=== PATIENT | female | born 1985 | race American Indian/Alaskan Native ===

== ENCOUNTER 2016-06-09 17:19 | Emergency (ER) | payer SELFPAY ==
[2016-06-09 17:29] VITALS: BP 132/100
--- NOTE | 2016-06-09 17:55 | Emergency Department Report ---
Chief Complaint: Nausea/Vomiting/Diarrhea Stated Complaint: FLU SYMPTOMS Time Seen by Provider: 06/09/16 17:52 - HPI History of Present Illness: PT c/o body aches and n/v. PT states her symptoms started over the weekend but became worse yesterday. 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 - ROS Review of Systems: + coughing +n/v + st - Exam Vital Signs: Vital Signs 06/09/16 17:26 Temperature 97.7 F Pulse Rate 89 Respiratory 20 Rate Blood Pressure 132/100 O2 Sat by Pulse 100 Oximetry Physical Exam: PT looks well, non toxic lungs diminished cierra pt with RUQ abd tenderness abd is soft MSE screening note: Focused history and physical exam performed. Due to findings the following was ordered: xr, labs ED Disposition for MSE Condition: Stable
[2016-06-09 18:29] LABS: Basophils % (Auto) 0.5 % (0.0-1.8); Eosinophils % (Auto) 4.4 % (0.0-4.3); Hematocrit 37.6 % (30.3-42.9); Hemoglobin 11.8 gm/dl (10.1-14.3); Mean Corpuscular HGB Conc 32 % (30-34); Mean Corpuscular Volume 71 fl (79-97); Platelet Count 332 K/mm3 (140-440); Red Cell Distribution Width 16.2 % (13.2-15.2); White Blood Count 7.1 K/mm3 (4.5-11.0)
[2016-06-09 18:36] LABS: Mean Corpuscular Hemoglobin 22 pg (28-32)
[2016-06-09 18:49] LABS: Alanine Aminotransferase 14 units/L (7-56); Albumin 4.2 g/dL (3.9-5); Albumin/Globulin Ratio 1.3 %; Alkaline Phosphatase 41 units/L (35-129); Anion Gap 20 mmol/L; Bilirubin,Total 0.3 mg/dL (0.1-1.2); Blood Urea Nitrogen 9 mg/dL (7-17); Calcium 9.3 mg/dL (8.4-10.2); Carbon Dioxide 22 mmol/L (22-30); Chloride 101.5 mmol/L (98-107); Glucose 84 mg/dL (65-100); Lipase 19 units/L (13-60); Potassium 4.1 mmol/L (3.6-5.0); Sodium 139 mmol/L (137-145); Total Protein 7.5 g/dL (6.3-8.2)
[2016-06-09 21:34] LABS: Bacteria,Urine 1+ /HPF (Negative); Bilirubin,Urine NEG (Negative); Blood,Urine LG (Negative); Ketones,Urine NEG (Negative); Leukocyte Esterase,Urine SM (Negative); Mucus,Urine FEW /HPF; Nitrite,Urine NEG (Negative); Protein,Urine <15 mg/dL mg/dL (Negative); Urobilinogen,Urine < 2.0 mg/dL (<2.0)
--- NOTE | 2016-06-09 22:26 | Emergency Department Report ---
ED General Adult HPI - General Chief complaint: Nausea/Vomiting/Diarrhea Stated complaint: FLU SYMPTOMS Time Seen by Provider: 06/09/16 17:52 Source: patient, RN notes reviewed Mode of arrival: Ambulatory Limitations: No Limitations - History of Present Illness Initial comments: This is a 30-year-old female. She is previously unknown to me. Her primary care doctor is Dr. Morales The patient presents to the ER complaining of chest pain, back pain, diarrhea, nausea and vomiting. Symptoms have been present since Tuesday. The chest pain as central, and located in the bilateral anterior chest wall. It increases with coughing, palpation, range of motion. There is no diaphoresis. No recent trips greater than 4 hours. No recent hospitalizations. No family history of heart disease. Does not use cocaine. Nausea and vomiting is intermittent. Patient reports vomiting 4 times today. It is yellow. It is nonbloody. It is nonbilious. There is no lower abdominal pain. No irritative or obstructive urinary symptoms. Patient also complains of body aches. -: Gradual, days(s) Location: chest, back, left, right, upper extremity, lower extremity Quality: aching Consistency: intermittent Improves with: rest Worsens with: movement Associated Symptoms: chest pain, cough, loss of appetite, malaise, nausea/ vomiting - Related Data Previous Rx's Medication Instructions Recorded Last Taken Type Diclofenac [Jacqueline Mistry] 75 mg PO Q12H #30 tablet 04/24/14 Unknown Rx HYDROcodone/ACETAMINOPHEN [[place] 1 each PO Q6H #16 tablet 04/24/14 Unknown Rx 7.5-325 mg TAB] predniSONE [Deltasone] 20 mg PO BID #10 tab 04/24/14 Unknown Rx Amoxicillin/K Clav Tab [Augmentin 1 tab PO BID #20 tab 11/26/15 Unknown Rx 875 mg] Ibuprofen [Motrin 800 MG tab] 800 mg PO Q8HR PRN #20 tablet 11/26/15 Unknown Rx Albuterol Sulfate [Proair 90 mcg IH Q4HR PRN #2 aer.pow.ba 06/09/16 Unknown Rx Respiclick] Benzonatate [Tessalon Perles] 100 mg PO Q8HR PRN #30 capsule 06/09/16 Unknown Rx Ibuprofen [Motrin] 600 mg PO Q8H PRN #30 tablet 06/09/16 Unknown Rx Ondansetron [Zofran Odt] 4 mg PO QID PRN #20 tab.rapdis 06/09/16 Unknown Rx Allergies Allergy/AdvReac Type Severity Reaction Status Date / Time No Known Allergies Allergy Verified 04/24/14 10:14 ED Review of Systems ROS: Stated complaint: FLU SYMPTOMS Other details as noted in HPI ED Past Medical Hx - Past Medical History Previous Medical History?: Yes Hx Headaches / Migraines: Yes Additional medical history: Bronchitis - Surgical History Past Surgical History?: Yes Additional Surgical History: right wrist - Social History Smoking Status: Current Every Day Smoker Substance Use Type: Other - Medications Home Medications: Home Medications Medication Instructions Recorded Confirmed Last Taken Type Diclofenac Dr [Voltaren Dr] 75 mg PO Q12H #30 tablet 04/24/14 Unknown Rx HYDROcodone/ACETAMINOPHEN [[place] 1 each PO Q6H #16 tablet 04/24/14 Unknown Rx 7.5-325 mg TAB] predniSONE [Deltasone] 20 mg PO BID #10 tab 04/24/14 Unknown Rx Amoxicillin/K Clav Tab [Augmentin 1 tab PO BID #20 tab 11/26/15 Unknown Rx 875 mg] Ibuprofen [Motrin 800 MG tab] 800 mg PO Q8HR PRN #20 tablet 11/26/15 Unknown Rx Albuterol Sulfate [Proair 90 mcg IH Q4HR PRN #2 aer.pow.ba 06/09/16 Unknown Rx Respiclick] Benzonatate [Tessalon Perles] 100 mg PO Q8HR PRN #30 capsule 06/09/16 Unknown Rx Ibuprofen [Motrin] 600 mg PO Q8H PRN #30 tablet 06/09/16 Unknown Rx Ondansetron [Zofran Odt] 4 mg PO QID PRN #20 tab.rapdis 06/09/16 Unknown Rx ED Physical Exam - General Limitations: No Limitations General appearance: alert, in no apparent distress - Head Head exam: Present: atraumatic, normocephalic - Eye Eye exam: Present: normal appearance, PERRL, EOMI. Absent: nystagmus - ENT ENT exam: Present: normal exam, normal orophraynx, mucous membranes moist, TM's normal bilaterally, normal external ear exam - Neck Neck exam: Present: normal inspection, full ROM, lymphadenopathy. Absent: tenderness, meningismus - Respiratory Respiratory exam: Present: normal lung sounds bilaterally, chest wall tenderness. Absent: respiratory distress, wheezes, rales, rhonchi, stridor, decreased breath sounds - Cardiovascular Cardiovascular Exam: Present: regular rate, normal rhythm, normal heart sounds. Absent: bradycardia, tachycardia, irregular rhythm, systolic murmur, diastolic murmur, rubs, gallop - GI/Abdominal GI/Abdominal exam: Present: soft, normal bowel sounds. Absent: distended, tenderness, guarding, rebound, rigid, pulsatile mass - Extremities Exam Extremities exam: Present: normal inspection, full ROM, normal capillary refill , calf tenderness (there is right lower extremity tenderness. This is isolated. There is no palpable cord. There is negative Homans sign. Compartments are soft.). Absent: tenderness, pedal edema, joint swelling - Back Exam Back exam: Present: normal inspection, full ROM. Absent: tenderness, CVA tenderness (R), CVA tenderness (L), muscle spasm, paraspinal tenderness, vertebral tenderness - Neurological Exam Neurological exam: Present: alert, oriented X3, normal gait, other (Extraocular movements intact. Tongue midline. No facial droop. Facial sensation intact to light touch in the V1, V2, V3 distribution bilaterally. 5 and 5 strength in 4 extremities.. Sensation is intact to light touch in 4 extremities.). Absent : motor sensory deficit - Psychiatric Psychiatric exam: Present: normal affect, normal mood - Skin Skin exam: Present: warm, dry, intact, normal color. Absent: rash ED Course Vital Signs 06/09/16 06/09/16 06/09/16 17:26 22:48 22:51 Temperature 97.7 F Pulse Rate 89 93 H 91 H Respiratory 20 14 14 Rate Blood Pressure 132/100 O2 Sat by Pulse 100 98 98 Oximetry - Reevaluation(s) Reevaluation #1: 06/09/16 22:57 Differential diagnosis: Bronchitis, viral syndrome, pneumonia, acute coronary syndrome, influenza-like illness, urinary tract infection Assessment and plan: 30-year-old female with multiple nonspecific constitutional complaints. Influenza illness like symptoms have been present for greater than 72 hours, therefore, she is out of Tamiflu candidate, and there is no utility in testing her for influenza. Chest pain is atypical, present for 3-4 days, exquisitely reproducible. She is low risk by ANNELIESE score, low risk by heart score, has no pulmonary embolus or DVT risk factors, is low risk by well's criteria, and is perc negative. She has right calf tenderness which is isolated. Given this, a d-dimer will be sent to risk stratify the patient for pulmonary embolus. X-ray of the chest is negative. EKG, laboratory studies pending. As per the [employer] clinical policy, myocardial infarction may be excluded with 1 set of cardiac enzymes if symptoms have been present for greater than 8 hours. 06/09/16 22:57 06/09/16 23:20 Reevaluation #2: 06/09/16 23:29 Troponin negative. D-dimer negative. EKG with nonspecific abnormalities. Patient can follow up with outpatient primary care or cardiology. She is at low risk for major adverse cardiac event, it appears to be reliable. Furthermore, the cardiology groups here at this facility can typically accommodate a patient for close outpatient follow-up. ED Medical Decision Making - Lab Data Result diagrams: 06/09/16 17:59 06/09/16 Unknown Vital Signs 06/09/16 17:26 Temperature 97.7 F Pulse Rate 89 Respiratory 20 Rate Blood Pressure 132/100 O2 Sat by Pulse 100 Oximetry Lab Results 06/09/16 06/09/16 06/09/16 Range/Units 17:59 21:05 Unknown WBC 7.1 (4.5-11.0) K/mm3 RBC 5.30 H (3.65-5.03) M/mm3 Hgb 11.8 (10.1-14.3) gm/dl Hct 37.6 (30.3-42.9) % MCV 71 L (79-97) fl MCH 22 L (28-32) pg MCHC 32 (30-34) % RDW 16.2 H (13.2-15.2) % Plt Count 332 (140-440) K/mm3 Lymph % (Auto) 37.8 H (13.4-35.0) % [place] % (Auto) 6.9 (0.0-7.3) % Eos % (Auto) 4.4 H (0.0-4.3) % Baso % (Auto) 0.5 (0.0-1.8) % Lymph # 2.7 (1.2-5.4) K/mm3 [place] # 0.5 (0.0-0.8) K/mm3 Eos # 0.3 (0.0-0.4) K/mm3 Baso # 0.0 (0.0-0.1) K/mm3 Seg Neutrophils % 50.4 (40.0-70.0) % Seg Neutrophils # 3.6 (1.8-7.7) K/mm3 Sodium 139 (137-145) mmol/L Potassium 4.1 (3.6-5.0) mmol/L Chloride 101.5 (98-107) mmol/L Carbon Dioxide 22 (22-30) mmol/L Anion Gap 20 mmol/L BUN 9 (7-17) mg/dL Creatinine 0.6 L (0.7-1.2) mg/dL Estimated GFR > 60 ml/min BUN/Creatinine Ratio 15.00 % Glucose 84 (65-100) mg/dL Calcium 9.3 (8.4-10.2) mg/dL Total Bilirubin 0.3 (0.1-1.2) mg/dL AST 19 (5-40) units/L ALT 14 (7-56) units/L Alkaline Phosphatase 41 (35-129) units/L Total Protein 7.5 (6.3-8.2) g/dL Albumin 4.2 (3.9-5) g/dL Albumin/Globulin Ratio 1.3 % Lipase 19 (13-60) units/L Urine Color Yellow (Yellow) Urine Turbidity Clear (Clear) Urine pH 5.0 (5.0-7.0) Ur Specific [place] 1.018 (1.003-1.030) Urine Protein <15 mg/dl (Negative) mg/dL Urine Glucose (UA) Neg (Negative) mg/dL Urine Ketones Neg (Negative) mg/dL Urine Blood Lg (Negative) Urine Nitrite Neg (Negative) Ur Reducing Substances Not Reportable Urine Bilirubin Neg (Negative) Urine Ictotest Not Reportable Urine Urobilinogen < 2.0 (<2.0) mg/dL Ur Leukocyte Esterase Sm (Negative) Urine WBC (Auto) 6.0 (0.0-6.0) /HPF Urine RBC (Auto) 3.0 (0.0-6.0) /HPF U Epithel Cells (Auto) 3.0 (0-13.0) /HPF Urine Bacteria (Auto) 1+ (Negative) /HPF Hyaline Casts 1 /LPF Urine Mucus Few /HPF Urine HCG, Qual Negative (Negative) - EKG Data -: EKG Interpreted by Me EKG shows normal: sinus rhythm, axis, intervals, QRS complexes Rate: normal - EKG Data When compared to previous EKG there are: previous EKG unavailable 06/09/16 23:19 Normal sinus, 87 bpm, normal axis, normal intervals, T-wave inversion in lead 3 , not morphologically consistent with STEMI, there is no prior for comparison. - Radiology Data Radiology results: image reviewed interpreted by me: X-ray of the chest is negative for acute disease Critical care attestation.: If time is entered above; I have spent that time in minutes in the direct care of this critically ill patient, excluding procedure time. ED Disposition Clinical Impression: Chest wall pain Disposition: DISCHARGED TO HOME OR SELFCARE Is pt being admited?: No Does the pt Need Aspirin: No Condition: Stable Instructions: Chest Pain (ED) Additional Instructions: Take pain medication, nausea medication, coughing medication as needed/ directed. Follow up with a primary care doctor or medicaid specialist within the next week. Dr. Sheikh is a local primary care doctor. Doctors Capri/ Maurice are local medicaid specialist. Return to the ER right away with her pain, worsened pain, migration of pain, fevers or chills, intractable nausea or vomiting, inability to tolerate liquid feeds. Referrals: PRIMARY CARE, [Primary Care Provider] - 3-5 Days ANGELA SHEIKH MD, PHD [Staff Physician] - 3-5 Days ALONZO PINEDA MD [Staff Physician] - 3-5 Days PERLA BAKER MD [Staff Physician] - 3-5 Days
[2016-06-09] MEDS: TYLENOL PO ONE (23:00)
[2016-06-09] MEDS: TORADOL IV ONE (23:00)
[2016-06-09] MEDS: NACL 0.9% 1000 ML 1,000 ML IV ONE (23:00)
[2016-06-09] MEDS: ZOFRAN IV ONE (23:01)
[2016-06-09 23:17] LABS: INR 0.96 (0.87-1.13)
[2016-06-09 23:25] LABS: Creatine Kinase 233 units/L (30-135)
--- NOTE | 2016-06-10 07:42 | XRay Report ---
Chest 2 views: History: Cough. Findings: Normal cardiomediastinal silhouette. Trachea is midline. No consolidation, pneumothorax or pleural effusion. Impression: No acute cardiopulmonary findings.
== END 2016-06-09 23:50 | disposition home or self-care (01) ==
LOC: ED 17:19
DX: R07.89 Other chest pain (principal); G43.909 Migraine, unspecified, not intractable, without status migrainosus; F17.200 Nicotine dependence, unspecified, uncomplicated
CPT/HCPCS: 36415; 71020; 80053; 81001; 81025; 82550; 83690; 84484; 85025; 85379; 85610; 93005; 93010; 96361; 96374; 99284; J1885; J7030; J2405

== ENCOUNTER 2016-11-04 14:54 | Emergency (ER) | payer SELFPAY ==
[2016-11-04 21:40] LABS: Basophils % (Auto) 0.9 % (0.0-1.8); Eosinophils % (Auto) 1.3 % (0.0-4.3); Hematocrit 38.8 % (30.3-42.9); Hemoglobin 12.5 gm/dl (10.1-14.3); Mean Corpuscular HGB Conc 32 % (30-34); Mean Corpuscular Volume 70 fl (79-97); Platelet Count 359 K/mm3 (140-440); Red Blood Count 5.52 M/mm3 (3.65-5.03); Red Cell Distribution Width 16.3 % (13.2-15.2); White Blood Count 9.8 K/mm3 (4.5-11.0)
[2016-11-04 21:43] LABS: Mean Corpuscular Hemoglobin 23 pg (28-32)
[2016-11-04] MEDS ORDERED: NACL 0.9% 1000 ML 1,000 ML IV ONE (21:46)
[2016-11-04] MEDS ORDERED: TORADOL IV ONE (21:46)
[2016-11-04] MEDS ORDERED: DECADRON IV ONE (21:46)
--- NOTE | 2016-11-04 21:51 | Emergency Department Report ---
ED Headache HPI - General Chief Complaint: Headache Stated Complaint: HEADACHE/SYNCOPE Time Seen by Provider: 11/04/16 21:36 Source: patient Exam Limitations: no limitations - History of Present Illness Initial Comments: 31-year-old female complaining of headache for the last 2 weeks. Patient states the headache is worsened point where she now has pressure in the back of her head and her neck. Denies fevers chills nausea vomiting. States she did get lightheaded and dizzy. Saw some floaters in her eyes bilaterally. These are currently resolved. [place] like she was given a pass out earlier today. She is not taking any medications today. Timing/Duration: 1 week Quality: moderate Head Injury Location: occipital Recent Head Trauma: chronic headaches Associated Symptoms: denies symptoms, vision changes. denies: confusion, fatigue, facial pain, fever/chills, flushing, loss of consciousness, nausea/ vomiting, nasal congestion, nasal drainage, numbness in legs/feet, rash, seizures, sinus infection, stiff neck, weakness Allergies/Adverse Reactions: Allergies ondansetron HCl [From Zofran (as hydrochloride)] Adverse Reaction (Intermediate , Verified 11/04/16 15:07) Itching Home Medications: Ambulatory Orders Diclofenac Dr [Voltaren Dr] 75 mg PO Q12H #30 tablet 04/24/14 HYDROcodone/ACETAMINOPHEN [[place] 7.5-325 mg TAB] 1 each PO Q6H #16 tablet Amoxicillin/K Clav Tab [Augmentin 875 mg] 1 tab PO BID #20 tab 11/26/15 Ibuprofen [Motrin 800 MG tab] 800 mg PO Q8HR PRN #20 tablet 11/26/15 Albuterol Sulfate [Proair Respiclick] 90 mcg IH Q4HR PRN #2 aer.pow.ba 06/09/16 Benzonatate [Tessalon Perles] 100 mg PO Q8HR PRN #30 capsule 06/09/16 Metoclopramide [Reglan] 10 mg PO QID PRN #30 tablet 06/09/16 Ibuprofen [Motrin 600 MG tab] 600 mg PO Q8H PRN #30 tablet 11/05/16 predniSONE [Deltasone] 40 mg PO DAILY #10 tab 11/05/16 ED Review of Systems ROS: Stated complaint: HEADACHE/SYNCOPE Other details as noted in HPI Comment: All other systems reviewed and negative Constitutional: denies: chills, fever Eyes: vision change (floaters now resolved). denies: eye pain, eye discharge ENT: denies: ear pain, throat pain Respiratory: denies: cough, shortness of breath, wheezing Cardiovascular: denies: chest pain, palpitations Endocrine: no symptoms reported Gastrointestinal: denies: abdominal pain, nausea, diarrhea Genitourinary: denies: urgency, dysuria, discharge Musculoskeletal: denies: back pain, joint swelling, arthralgia Skin: denies: rash, lesions Neurological: headache. denies: weakness, paresthesias Psychiatric: denies: anxiety, depression Hematological/Lymphatic: denies: easy bleeding, easy bruising ED Past Medical Hx - Past Medical History Hx Headaches / Migraines: Yes Additional medical history: Bronchitis. OBESITY - Surgical History Additional Surgical History: right wrist-CYST REMOVED - Family History Family history: no significant - Social History Smoking Status: Current Some Day Smoker Substance Use Type: None - Medications Home Medications: Home Medications Medication Instructions Recorded Confirmed Last Taken Type Diclofenac Dr [Jacqueline Mistry] 75 mg PO Q12H #30 tablet 04/24/14 Unknown Rx HYDROcodone/ACETAMINOPHEN [[place] 1 each PO Q6H #16 tablet 04/24/14 Unknown Rx 7.5-325 mg TAB] Amoxicillin/K Clav Tab [Augmentin 1 tab PO BID #20 tab 11/26/15 Unknown Rx 875 mg] Ibuprofen [Motrin 800 MG tab] 800 mg PO Q8HR PRN #20 tablet 11/26/15 Unknown Rx Albuterol Sulfate [Proair 90 mcg IH Q4HR PRN #2 aer.pow.ba 06/09/16 Unknown Rx Respiclick] Benzonatate [Tessalon Perles] 100 mg PO Q8HR PRN #30 capsule 06/09/16 Unknown Rx Metoclopramide [Reglan] 10 mg PO QID PRN #30 tablet 06/09/16 Unknown Rx Ibuprofen [Motrin 600 MG tab] 600 mg PO Q8H PRN #30 tablet 11/05/16 Unknown Rx predniSONE [Deltasone] 40 mg PO DAILY #10 tab 11/05/16 Unknown Rx ED Physical Exam - General Limitations: No Limitations General appearance: alert, in no apparent distress - Head Head exam: Present: atraumatic, normocephalic - Eye Eye exam: Present: normal appearance, PERRL, EOMI. Absent: scleral icterus, conjunctival injection, nystagmus Pupils: Present: normal accommodation - ENT ENT exam: Present: mucous membranes moist - Neck Neck exam: Present: normal inspection - Respiratory Respiratory exam: Present: normal lung sounds bilaterally. Absent: respiratory distress - Cardiovascular Cardiovascular Exam: Present: regular rate, normal rhythm. Absent: systolic murmur, diastolic murmur, rubs, gallop - GI/Abdominal GI/Abdominal exam: Present: soft, normal bowel sounds - Extremities Exam Extremities exam: Present: normal inspection - Back Exam Back exam: Present: normal inspection - Neurological Exam Neurological exam: Present: alert, oriented X3, CN II-XII intact - Expanded Neurological Exam Expanded Patient oriented to: Present: person, place, time Speech: Present: fluid speech Cerebellar function: Finger to Nose: Normal, Heel to Chaudhry: Normal Upper motor neuron: Rayray Neglect: Normal, Pronator Drift: Normal, Babinski Sign : Normal, Sensory Extinction: Normal - Psychiatric Psychiatric exam: Present: normal affect, normal mood - Skin Skin exam: Present: warm, dry, intact, normal color. Absent: rash ED Course Vital Signs 11/04/16 11/04/16 11/04/16 15:00 21:04 21:10 Temperature 98.5 F Pulse Rate 99 H 82 78 Respiratory 16 14 14 Rate Blood Pressure 143/97 131/84 Blood Pressure [Right] O2 Sat by Pulse 99 100 100 Oximetry 11/04/16 11/04/16 11/04/16 21:20 21:30 21:40 Temperature Pulse Rate 80 84 76 Respiratory 11 L 14 14 Rate Blood Pressure 133/90 131/80 131/80 Blood Pressure [Right] O2 Sat by Pulse 99 98 99 Oximetry 11/04/16 11/04/16 11/04/16 21:50 22:00 22:10 Temperature Pulse Rate 76 74 86 Respiratory 15 15 15 Rate Blood Pressure 123/79 126/77 126/77 Blood Pressure [Right] O2 Sat by Pulse 99 100 99 Oximetry 11/04/16 11/04/16 11/04/16 22:20 22:30 22:34 Temperature 98.4 F Pulse Rate 84 83 81 Respiratory 13 14 18 Rate Blood Pressure 121/80 121/80 Blood Pressure 120/70 [Right] O2 Sat by Pulse 98 98 99 Oximetry ED Medical Decision Making - Lab Data Result diagrams: 11/04/16 21:20 11/04/16 21:20 Laboratory Results - last 24 hr 11/04/16 21:20 WBC 9.8 RBC 5.52 H Hgb 12.5 Hct 38.8 MCV 70 L MCH 23 L MCHC 32 RDW 16.3 H Plt Count 359 Lymph % (Auto) 37.5 H [place] % (Auto) 5.2 Eos % (Auto) 1.3 Baso % (Auto) 0.9 Lymph # 3.7 [place] # 0.5 Eos # 0.1 Baso # 0.1 Seg Neutrophils % 55.1 Seg Neutrophils # 5.4 Laboratory Results - last 24 hr 11/04/16 11/04/16 21:20 21:20 WBC 9.8 RBC 5.52 H Hgb 12.5 Hct 38.8 MCV 70 L MCH 23 L MCHC 32 RDW 16.3 H Plt Count 359 Lymph % (Auto) 37.5 H [place] % (Auto) 5.2 Eos % (Auto) 1.3 Baso % (Auto) 0.9 Lymph # 3.7 [place] # 0.5 Eos # 0.1 Baso # 0.1 Seg Neutrophils % 55.1 Seg Neutrophils # 5.4 Carbon Dioxide 25 BUN 8 Creatinine 0.6 L Estimated GFR > 60 BUN/Creatinine Ratio 13.33 Glucose 87 Calcium 9.9 Total Creatine Kinase 248 H Troponin T < 0.010 - EKG Data -: EKG Interpreted by Me - EKG Data 11/04/16 21:50 Sinus 73 normal axis normal intervals and T-wave inversion in III and aVF no ST segment changes. - Medical Decision Making 31-year-old female here with complaint of headache worsening over the last few days. Has a history of chronic headaches although this one is significantly worse than priors. Visual acuity is at baseline. She has a normal neurological exam. Plan head CT check labs and will treat with IV fluids and IV Toradol and IV steroids. Plan to reassess. 11:45 PM patient feeling better after IV fluids Toradol and steroids. Headache is resolved. Head CT negative. Labs unremarkable. Had a long discussion with the patient regarding her prior visual symptoms. If these were large return the patient is to return to the emergency department for possible lumbar puncture. I do not suspect that she has idiopathic intracranial hypertension however I do feel that if her visual symptoms or to return she should have a lumbar puncture. My suspicion is this is most likely migraine headache. Portions of this chart were dictated with dictation software. There may be dictation errors contained within this note. Critical care attestation.: If time is entered above; I have spent that time in minutes in the direct care of this critically ill patient, excluding procedure time. ED Disposition Clinical Impression: Migraine headache Disposition: TO HOME OR SELFCARE Is pt being admited?: No Condition: Stable Instructions: Migraine Headache (ED) Additional Instructions: Should you have worsening headache or visual changes please return to the emergency department for further evaluation. Prescriptions: Ibuprofen [Motrin 600 MG tab] 600 mg PO Q8H PRN #30 tablet PRN Reason: Pain predniSONE [Deltasone] 40 mg PO DAILY #10 tab Referrals: PRIMARY CARE, [Primary Care Provider] - 3-5 Days
[2016-11-04 22:01] LABS: Carbon Dioxide 25 mmol/L (22-30)
[2016-11-04 22:02] LABS: Anion Gap 19 mmol/L; BUN/Creatinine Ratio 13.33; Blood Urea Nitrogen 8 mg/dL (7-17); Calcium 9.9 mg/dL (8.4-10.2); Chloride 93.8 mmol/L (98-107); Creatine Kinase 248 units/L (30-135); Glucose 87 mg/dL (65-100); Potassium 3.7 mmol/L (3.6-5.0); Sodium 134 mmol/L (137-145)
--- NOTE | 2016-11-04 23:13 | Cat Scan Report ---
FINAL REPORT PROCEDURE: CT HEAD/BRAIN WO CON TECHNIQUE: Computerized tomography of the head was performed without contrast material. HISTORY: headache COMPARISON: No prior studies are available for comparison. FINDINGS: Brain: Brain density appears normal. No evidence of intracranial hemorrhage. No parenchymal hemorrhage, mass lesions or mass effect are seen. No abnormal extraxial fluid collects or masses are seen. Ventricles: Ventricles are normal size and are midline. Bone Windows: No evidence of skull fracture. Paranasal sinuses: Visualized portions appear clear. Mastoid air cells: Clear IMPRESSION: Negative exam.
[2016-11-05 01:35] VITALS: BP 136/80
== END 2016-11-05 01:40 | disposition home or self-care (01) ==
LOC: ED 14:54
DX: G43.909 Migraine, unspecified, not intractable, without status migrainosus (principal); F17.210 Nicotine dependence, cigarettes, uncomplicated
CPT/HCPCS: 36415; 70450; 80048; 82550; 84484; 85025; 93005; 93010; 96361; 96374; 96375; 99284; J1100; J1885; J7030

== ENCOUNTER 2020-02-06 22:40 | Observation (INO) | payer OTHER ==
[2020-02-07] MEDS ORDERED: ACETAMINOPHEN 325 MG TAB ONE (01:45)
[2020-02-07] MEDS ORDERED: ACETAMINOPHEN 325 MG TAB PO ONE (01:48)
[2020-02-07 02:32] LABS: Hematocrit 37.8 % (30.3-42.9); Hemoglobin 12.2 gm/dl (10.1-14.3); Mean Corpuscular HGB Conc 32 % (30-34); Mean Corpuscular Volume 73 fl (79-97); Platelet Count 311 K/mm3 (140-440); Red Blood Count 5.16 M/mm3 (3.65-5.03); Red Cell Distribution Width 15.7 % (13.2-15.2)
[2020-02-07 02:38] LABS: Alanine Aminotransferase 13 units/L (7-56); Albumin 4.3 g/dL (3.9-5); BUN/Creatinine Ratio 17; Blood Urea Nitrogen 15 mg/dL (7-17); Calcium 9.4 mg/dL (8.4-10.2); Hemolysis Index 4
[2020-02-07 03:07] LABS: Basophils % (Manual) 0 % (0.0-1.8); Hypochromasia 1+; Ovalocytes Rare; Tear Drop Cells Rare; Total Cells Counted 100
[2020-02-07 03:08] LABS: Platelet Estimate Consistent w Auto
[2020-02-07 03:36] LABS: Bilirubin,Urine NEG (Negative); Blood,Urine SM (Negative); Color,Urine Yellow (Yellow); Mucus,Urine 1+ /HPF; Protein,Urine <15 mg/dL mg/dL (Negative); Urobilinogen,Urine < 2.0 mg/dL (<2.0)
--- NOTE | 2020-02-07 03:37 | Emergency Department Report ---
ED Syncope HPI - General Chief Complaint: Syncope Stated Complaint: SYNCOPE Time Seen by Provider: 02/07/20 03:20 Source: patient, family Exam Limitations: clinical condition - History of Present Illness Initial Comments: Patient is a 34-year-old female that presents emergency room with complaints of syncopal episode, headache, confusion. History is per family. Family states that the patient had a severe headache and checked her blood pressure was 229/110 and she took one of her blood pressure medications. Family states that the patient then went to take a shower and passed out in the shower. Family had altered mental status confusion after the syncopal episode. EMS brought the patient to the hospital. The last known well time was 9 PM. Family states that the patient is noncompliant with her blood pressure medications. Patient is ANO x3 but is confused about the events surrounding her syncopal episode. Patient states she does not take her blood pressure medication. Patient denies pain at this time. Patient is not sure if she hit her head or how long she was out for. Patient denies recent travel. Patient denies recent international travel. Patient denies exposure to the novel coronavirus. Patient denies sick contacts. Patient denies fever and chills. Patient denies cough. Patient denies diarrhea. Patient denies coming in contact with anybody with symptoms of the novel coronavirus. Timing/Prior Episodes: single episode today Precipitating Factors: Positive: lightheadedness Loss of Consciousness: brief (seconds) Current Symptoms: lightheadedness, weakness, other (Confusion) - Related Data Allergies/Adverse Reactions: Allergies ondansetron HCl [From Zofran (as hydrochloride)] Adverse Reaction (Intermediate, Verified 11/04/16 15:07) Itching Home Medications: Ambulatory Orders Yung Mistry [Jacqueline Mistry] 75 mg PO Q12H #30 tablet 04/24/14 HYDROcodone/ACETAMINOPHEN [Ponce 7.5-325 mg TAB] 1 each PO Q6H #16 tablet 04/24/14 Amoxicillin/K Clav Tab [Augmentin 875 mg] 1 tab PO BID #20 tab 11/26/15 Ibuprofen [Motrin 800 MG tab] 800 mg PO Q8HR PRN #20 tablet 11/26/15 Albuterol Sulfate [Proair Respiclick] 90 mcg IH Q4HR PRN #2 aer.pow.ba 06/09/16 Benzonatate [Tessalon Perles] 100 mg PO Q8HR PRN #30 capsule 06/09/16 Metoclopramide [Reglan] 10 mg PO QID PRN #30 tablet 06/09/16 Ibuprofen [Motrin 600 MG tab] 600 mg PO Q8H PRN #30 tablet 11/05/16 predniSONE [Deltasone] 40 mg PO DAILY #10 tab 11/05/16 ED Review of Systems ROS: Stated complaint: SYNCOPE Other details as noted in HPI Constitutional: denies: chills, fever Eyes: denies: eye pain, eye discharge, vision change ENT: denies: ear pain, throat pain Respiratory: denies: cough, shortness of breath, wheezing Cardiovascular: denies: chest pain, palpitations Endocrine: no symptoms reported Gastrointestinal: denies: abdominal pain, nausea, diarrhea Genitourinary: denies: urgency, dysuria, discharge Musculoskeletal: denies: back pain, joint swelling, arthralgia Skin: denies: rash, lesions Neurological: as per HPI, headache, confusion. denies: weakness, paresthesias Psychiatric: denies: anxiety, depression Hematological/Lymphatic: denies: easy bleeding, easy bruising ED Past Medical Hx - Past Medical History Previous Medical History?: Yes Hx Hypertension: Yes Hx Headaches / Migraines: Yes Additional medical history: Bronchitis. OBESITY. high cholesterol. anemia - Surgical History Past Surgical History?: Yes Additional Surgical History: right wrist-CYST REMOVED. fibroid removal- 11/06/2019; [facility] - Social History Smoking Status: Never Smoker - Medications Home Medications: Home Medications Medication Instructions Recorded Confirmed Last Taken Type Yung Mistry [Jacqueline Mistry] 75 mg PO Q12H #30 tablet 04/24/14 Unknown Rx HYDROcodone/ACETAMINOPHEN [[place] 1 each PO Q6H #16 tablet 04/24/14 Unknown Rx 7.5-325 mg TAB] Amoxicillin/K Clav Tab [Augmentin 1 tab PO BID #20 tab 11/26/15 Unknown Rx 875 mg] Ibuprofen [Motrin 800 MG tab] 800 mg PO Q8HR PRN #20 tablet 11/26/15 Unknown Rx Albuterol Sulfate [Proair 90 mcg IH Q4HR PRN #2 aer.pow.ba 06/09/16 Unknown Rx Respiclick] Benzonatate [Tessalon Perles] 100 mg PO Q8HR PRN #30 capsule 06/09/16 Unknown Rx Metoclopramide [Reglan] 10 mg PO QID PRN #30 tablet 06/09/16 Unknown Rx Ibuprofen [Motrin 600 MG tab] 600 mg PO Q8H PRN #30 tablet 11/05/16 Unknown Rx predniSONE [Deltasone] 40 mg PO DAILY #10 tab 11/05/16 Unknown Rx ED Physical Exam - General Limitations: No Limitations General appearance: alert, in no apparent distress - Head Head exam: Present: atraumatic, normocephalic - Eye Eye exam: Present: normal appearance, PERRL Pupils: Present: normal accommodation - ENT ENT exam: Present: mucous membranes moist - Neck Neck exam: Present: normal inspection - Respiratory Respiratory exam: Present: normal lung sounds bilaterally. Absent: respiratory distress - Cardiovascular Cardiovascular Exam: Present: regular rate, normal rhythm. Absent: systolic murmur, diastolic murmur, rubs, gallop - GI/Abdominal GI/Abdominal exam: Present: soft, normal bowel sounds - Extremities Exam Extremities exam: Present: normal inspection - Back Exam Back exam: Present: normal inspection - Neurological Exam Neurological exam: Present: alert, oriented X3 - Psychiatric Psychiatric exam: Present: normal affect, normal mood - Skin Skin exam: Present: warm, dry, intact, normal color. Absent: rash ED Course Vital Signs 02/07/20 02/07/20 03:08 03:25 Pulse Rate 81 Respiratory 18 16 Rate Blood Pressure 127/71 [Left] O2 Sat by Pulse 98 Oximetry - Reevaluation(s) Reevaluation #1: Initial evaluation done. A code stroke has been initiated based on the patient's symptoms. 02/07/20 03:35 Reevaluation #2: I discussed all results with patient. I discussed plan of care with patient. Patient agrees with plan of care and admission. Patient to be admitted to the hospitalist service. 02/07/20 04:40 - Consultations Consultation #1: I discussed case with neurologist. Neurologist recommends admission, MRI EEG. Differentials per neurologist are encephalopathy, TIA, CVA but most likely seizure. 02/07/20 04:08 Consultation #2: Hospitalist consulted for admission. Hospitalist to admit patient. 02/07/20 04:42 ED Medical Decision Making - Lab Data Result diagrams: 02/07/20 02:03 02/07/20 02:03 - EKG Data -: EKG Interpreted by Me EKG shows normal: sinus rhythm, axis, intervals, QRS complexes, ST-T waves Rate: normal - Radiology Data Radiology results: report reviewed CT head/brain wo con INDICATION / CLINICAL INFORMATION: CODE STROKE PROTOCOL!!! Stroke-Like symptoms. TECHNIQUE: Axial CT imaging of the brain was obtained without contrast. Coronal and sagittal reformatted imaging obtained and reviewed. All CT scans at this location are performed using CT dose reduction for ALARA by means of automated exposure control. COMPARISON: Prior head CT 11/04/2016 FINDINGS: No intracranial hemorrhage, mass, or midline shift. No extra-axial fluid collection or suggestion of acute territorial infarction. Ventricular system and basilar cisterns are normal in appearance. Visualized paranasal sinuses and mastoid air cells are well aerated and clear. No calvarial abnormality. no soft tissue abnormality. Both orbits appear unremarkable. IMPRESSION: 1. No acute intracranial abnormality. Please note that a negative CT exam does not exclude the possibility of acute CVA and clinical correlation is recommended. 2. This is a code stroke. A negative report was verbally given to Dr. 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 - Medical Decision Making Patient is a 34-year-old female that presents emergency room for syncopal episode, confusion or altered mental status. Patient had a syncopal episode at home and then had some postevent confusion. Patient had a headache and took her blood pressure her blood pressure was 229/110 patient then took a large dose of her blood pressure medication her blood pressure dropped. Patient then went took a shower and she had a syncopal episode while in the shower. Patient has a lot of confusion surrounding the event. Patient's history per her family member. After initial evaluation, a code stroke was initiated. Patient had a head CT which was negative. Patient's labs were essentially unremarkable. The neurologist saw the patient and recommended admission, MRI and EEG. Neurologist also recommended seizure work-up, TIA work-up and stroke work-up. Patient admitted to the hospital service for further evaluation and treatment. - Differential Diagnosis Seizure, TIA, encephalopathy, hypertension, headache, syncope, AMS Critical Care Time: Yes Critical care time in (mins) excluding proc time.: 35 Critical care attestation.: If time is entered above; I have spent that time in minutes in the direct care of this critically ill patient, excluding procedure time. Critical Care Time: 35 MINUTES ED Disposition Clinical Impression: Confusion, Numbness, Noncompliance, Encephalopathy acute Altered mental state Qualifiers: Altered mental status type: unspecified Qualified Code(s): R41.82 - Altered mental status, unspecified Syncope Qualifiers: Syncope type: unspecified Qualified Code(s): R55 - Syncope and collapse Disposition: 09 OP ADMIT IP TO THIS HOSP Is pt being admited?: Yes Does the pt Need Aspirin: No Condition: Critical Instructions: Syncope (ED) Time of Disposition: 04:40 - Assessment Assessment Interval: Baseline - Level of Consciousness 1a. Level of Consciousness: alert/keenly responsive - LOC Questions 1b. LOC Questions: answers both correctly - LOC Command 1c. LOC Commands: performs tasks correctly - Best Gaze 2. Best Gaze: normal - Visual 3. Visual: no visual loss - Facial Palsy 4. Facial Palsy: normal symmetrical movement - Motor Arm 5a. Motor Arm Left: no drift 5b. Motor Arm Right: no drift - Motor Leg 6a. Motor Leg Left: no drift 6b. Motor Leg Right: no drift - Limb Ataxia 7. Limb Ataxia: absent - Sensory 8. Sensory: mild/moderate sensory loss - Best Language 9. Best Language: no aphasia - Dysarthria 10. Dysarthria: normal - Extinction and Inattention 11. Extinction/Inattention: no abnormality - Scoring Total Score: 1 Stroke Severity: Minor Stroke
[2020-02-07 03:38] LABS: HCG Qualitative,Urine Negative (Negative)
--- NOTE | 2020-02-07 03:55 | Consultation ---
History of Present Illness Consult date: 02/07/20 Reason for Consult: syncope, confusion History of present illness: [facility] Date of Service: 02/07/2020 03:36:43 Impression: Rule Out Acute Ischemic Stroke vs recurrent TIA after syncope Rule out complex partial seizure (right face twitching; loss of consciousness with confusion and right sided deficits that are resolving) Labile HTN following home BP medication, hx noncompliance Comments/Sign-Out: 34 yo F with reported syncopal episode in the shower after taking BP meds for pressures >220s just prior. She was confused amnestic and had a headache afterward with injuries to her forehead and right shoulder. Denies any tongue biting or incontinence. She did report that her right eyelid and face have been intermittently twitching, abrupt onset and lasts for minutes before stopping. She apparently had a nonfocal exam for the ED MD when assessed between [id number] (although full NIHSS was not completed, ie. sensory) so we are not sure if she had fully returned back to normal or not. As noted earlier, stroke alert was activated for presumed TIA as she did not have any gross symptoms at 0330. When I saw her 10 minutes prior NIHSS was 7. The ED physician re-assessed her at 0410 and she was normal except for decreased right leg sensation. NIHSS 1 Variable presentation and unclear if she had completely returned to normal since arrival makes it difficult to determine if she is still an alteplase candidate since she was truly LKW at 2100. furthermore diagnosis of syncope is in question as her episode in the shower could have been a seizure. She also described facial twitching on the same side she is now weak, also suggesting potential post ictal symptoms. Metrics: Last Known Well: 02/06/2020 21:00:00 [employer] Notification Time: 02/07/2020 03:36:22 Arrival Time: 02/06/2020 22:40:00 Stamp Time: 02/07/2020 03:36:43 Time First Login Attempt: 02/07/2020 03:40:55 Video Start Time: 02/07/2020 03:42:34 Symptoms: right sided weakness; NIHSS Start Assessment Time: 02/07/2020 03:58:44 Patient is not a candidate for Alteplase/Activase. Patient was not deemed candidate for Alteplase/Activase thrombolytics because of Last Well Known Above 4.5 Hours. Video End Time: 02/07/2020 04:06:51 CT head showed no acute hemorrhage or acute core infarct. Clinical Presentation is not Suggestive of Large Vessel Occlusive Disease ED Physician notified of diagnostic impression and management plan on 02/07/2020 04:07:27 Our recommendations are outlined below. Recommendations: Activate Stroke Protocol Admission/Order Set Stroke/Telemetry Floor Neuro Checks Bedside Swallow Eval DVT Prophylaxis IV Fluids, Normal Saline Head of Bed 30 Degrees Euglycemia and Avoid Hyperthermia (PRN Acetaminophen) No alteplase given unclear LKW time; whether she completely resolved since ED arrival and then had recurrent spell due to new stroke/TIA or ictal/post ictal state, or wasn't normal to begin with since 2099 She has no cortical findings to suggest large vessel occlusion. Very poss ible she could have completed a CT negative small vessel infarct, MRI necessary to confirm No indication for emergent CTA but vessel imaging is advised as part of workup Aspirin x 1 then continue baby aspirin until re-evaluated in AM MRI Brain wwo contrast MRA head and neck wo contrast Routine EEG Neuro consult Routine Consultation with Inhouse Neurology for Follow up Care Sign Out: Discussed with Emergency Department Provider History of Present Illness: Patient is a 34 year old Female. Patient was brought by EMS for symptoms of right sided weakness; 34 yo F Hx HTN hx noncompliance, HLD obesity, migraines, anemia and bronchitis who presents with a syncopal episode in the shower followed by confusion and headache in setting of hypertensive emergency. She took her blood pressure yesterday evening and it was 229/110. She took her BP medication before the shower. Her pressure was normal on arrival suspicious that pressure had bottomed out. She arrived before 2300 and was evaluated by the ED physician at 0320 at which time she reportedly had a normal assessment however full NIHSS was not performed including sensory exam. A stroke alert was activated over possibility she had a TIA that had resolved (not because she was having new symptoms since arrival). I saw her after her HCCT (normal no hemorrhage per radiologist). As of 357, she reports that her right face and eye felt like it is twitching. She has swelling and bruising over her right forehead and is tender to the touch. Her right arm and leg feel weak numb and tingly, as well as heavy. Her right arm drifts and she struggles to keep right leg antigravity. She also has decreased sensation on the right leg with tactile extinction. She says it feels roughly the same in the right face and arm. This is a markedly different exam from when stroke alert was activated so I discussed the case with Dr. Shannon Last seen normal was beyond 4.5 hours of presentation. There is no history of hemorrhagic complications or intracranial hemorrhage. There is no history of Recent Anticoagulants. There is no history of recent major surgery. There is no history of recent stroke. Past Medical History: Hypertension Examination: BP(127/71), Pulse(81), Blood Glucose(81) 1A: Level of Consciousness - Alert; keenly responsive + 0 1B: Ask Month and Age - Both Questions Right + 0 1C: Blink Eyes & Squeeze Hands - Performs Both Tasks + 0 2: Test Horizontal Extraocular Movements - Normal + 0 3: Test Visual Lai - No Visual Loss + 0 4: Test Facial Palsy (Use Grimace if Obtunded) - Partial paralysis (lower face) + 2 5A: Test Left Arm Motor Drift - No Drift for 10 Seconds + 0 5B: Test Right Arm Motor Drift - Drift, but doesn't hit bed + 1 6A: Test Left Leg Motor Drift - No Drift for 5 Seconds + 0 6B: Test Right Leg Motor Drift - Drift, but doesn't hit bed + 1 7: Test Limb Ataxia (FNF/Heel-Chaudhry) - No Ataxia + 0 8: Test Sensation - Complete Loss: Cannot Sense Being Touched At All + 2 9: Test Language/Aphasia - Normal; No aphasia + 0 10: Test Dysarthria - Normal + 0 11: Test Extinction/Inattention - Visual/tactile/auditory/spatial/personal inattention + 1 NIHSS Score: 7 Patient/Family was informed the Neurology Consult would happen via TeleHealth consult by way of interactive audio and video telecommunications and consented to receiving care in this manner. Due to the immediate potential for life-threatening deterioration due to underlying acute neurologic illness, I spent 35 minutes providing critical care. This time includes time for face to face visit via telemedicine, review of medical records, imaging studies and discussion of findings with providers, the patient and/or family. Dr Yoel Sylvester [facility] Case [id number] Medications and Allergies Allergies Allergy/AdvReac Type Severity Reaction Status Date / Time ondansetron HCl AdvReac Intermediate Itching Verified 11/04/16 15:07 [From Zofran (as hydrochloride)] Home Medications Medication Instructions Recorded Confirmed Last Taken Type Diclofenac Dr [Voltareuriah Mistry] 75 mg PO Q12H #30 tablet 04/24/14 Unknown Rx HYDROcodone/ACETAMINOPHEN [[place] 1 each PO Q6H #16 tablet 04/24/14 Unknown Rx 7.5-325 mg TAB] Amoxicillin/K Clav Tab [Augmentin 1 tab PO BID #20 tab 11/26/15 Unknown Rx 875 mg] Ibuprofen [Motrin 800 MG tab] 800 mg PO Q8HR PRN #20 tablet 11/26/15 Unknown Rx Albuterol Sulfate [Proair 90 mcg IH Q4HR PRN #2 aer.pow.ba 06/09/16 Unknown Rx Respiclick] Benzonatate [Tessalon Perles] 100 mg PO Q8HR PRN #30 capsule 06/09/16 Unknown Rx Metoclopramide [Reglan] 10 mg PO QID PRN #30 tablet 06/09/16 Unknown Rx Ibuprofen [Motrin 600 MG tab] 600 mg PO Q8H PRN #30 tablet 11/05/16 Unknown Rx predniSONE [Deltasone] 40 mg PO DAILY #10 tab 11/05/16 Unknown Rx Physical Examination - Vital Signs Vital Signs: Vital Signs Resp 18 02/07/20 03:08 Results - Laboratory Findings CBC and BMP: 02/07/20 02:03 02/07/20 02:03 Abnormal Lab Findings: Abnormal Labs 02/07/20 02:03 RBC 5.16 H MCV 73 L MCH 24 L RDW 15.7 H Lymphocytes % (Manual) 40.0 H Monocytes % (Manual) 9.0 H
--- NOTE | 2020-02-07 04:02 | Cat Scan Report ---
CT head/brain wo con INDICATION / CLINICAL INFORMATION: CODE STROKE PROTOCOL!!! Stroke-Like symptoms. TECHNIQUE: Axial CT imaging of the brain was obtained without contrast. Coronal and sagittal reformatted imaging obtained and reviewed. All CT scans at this location are performed using CT dose reduction for ALAKatharina A by means of automated exposure control. COMPARISON: Prior head CT 11/04/2016 FINDINGS: No intracranial hemorrhage, mass, or midline shift. No extra-axial fluid collection or suggestion of acute territorial infarction. Ventricular system and basilar cisterns are normal in appearance. Visualized paranasal sinuses and mastoid air cells are well aerated and clear. No calvarial abnormali ty. no soft tissue abnormality. Both orbits appear unremarkable. IMPRESSION: 1. No acute intracranial abnormality. Please note that a negative CT exam does not exclude the possib ility of acute CVA and clinical correlation is recommended. 2. This is a code stroke. A negative report was verbally given to Dr. Shannon by telephone at 0256 h ours SHIPPING AND RECEIVING COORDINATOR. Signer Name: Maia Lezama MD Signed: 02/07/2020 3:57 AM Workstation Name: [id number]
[2020-02-07 04:28] LABS: Partial Thromboplastin Time 29.5 Sec. (24.2-36.6); Thrombin Time 15.8 Sec. (15.1-19.6)
[2020-02-07 04:41] LABS: Creatine Kinase MB 1.9 ng/mL (0.0-4.0)
--- NOTE | 2020-02-07 04:54 | History and Physical Report ---
History of Present Illness Date of examination: 02/07/20 Date of admission: 02/06/20 Chief complaint: syncope History of present illness: Patient is a 34-year-old female that presents emergency room with complaints of syncopal episode, headache, confusion. History is per family. Per ED record- Family states that the patient had a severe headache and checked her blood pressure was 229/110 and she took one of her blood pressure medications. Family states that the patient then went to take a shower and passed out in the shower. Patient had altered mental status confusion after the syncopal episode. EMS brought the patient to the hospital. Family states that the patient is noncompliant with her blood pressure medications. Patient is ANO x3 but is confused about the events surrounding her syncopal episode. Patient states she does not take her blood pressure medication. Patient denies pain at this time. patient seen at bedside in ED. patient awake, on room air, she reports right arm weakness, admits tobacco use and occasional drinker. Reviewed lab, mar and v/s- blood pressure at the monitor 124/75, 02 sat 98% on room air at time of assessment. patient also report headache-pain level 6/10. Ct of the head negative for acute finding. Patient answers question appropriately and she denies hx of seizures. ED Work up shows WBC 7.6, Sodium 138, potassium 3.6, C02 24, Cr 0.9, hemoglobin 12.2, CT of the head-no acute finding Past History Past Medical History: hypertension Past Surgical History: No surgical history Social history: no significant social history Family history: no significant family history Medications and Allergies Allergies Allergy/AdvReac Type Severity Reaction Status Date / Time ondansetron HCl AdvReac Intermediate Itching Verified 11/04/16 15:07 [From Zofran (as hydrochloride)] Home Medications Medication Instructions Recorded Confirmed Last Taken Type Diclofenac [Jacqueline Mistry] 75 mg PO Q12H #30 tablet 04/24/14 Unknown Rx HYDROcodone/ACETAMINOPHEN [[place] 1 each PO Q6H #16 tablet 04/24/14 Unknown Rx 7.5-325 mg TAB] Amoxicillin/K Clav Tab [Augmentin 1 tab PO BID #20 tab 11/26/15 Unknown Rx 875 mg] Ibuprofen [Motrin 800 MG tab] 800 mg PO Q8HR PRN #20 tablet 11/26/15 Unknown Rx Albuterol Sulfate [Proair 90 mcg IH Q4HR PRN #2 aer.pow.ba 06/09/16 Unknown Rx Respiclick] Benzonatate [Tessalon Perles] 100 mg PO Q8HR PRN #30 capsule 06/09/16 Unknown Rx Metoclopramide [Reglan] 10 mg PO QID PRN #30 tablet 06/09/16 Unknown Rx Ibuprofen [Motrin 600 MG tab] 600 mg PO Q8H PRN #30 tablet 11/05/16 Unknown Rx predniSONE [Deltasone] 40 mg PO DAILY #10 tab 11/05/16 Unknown Rx Review of Systems Musculoskeletal: arm numbness/tingling Exam - Constitutional Vitals: Temp Pulse Resp BP Pulse Ox 81 16 127/71 98 02/07/20 03:25 02/07/20 03:25 02/07/20 03:25 02/07/20 03:25 General appearance: Present: mild distress, obese - EENT Eyes: Present: PERRL ENT: hearing intact, clear oral mucosa - Neck Neck: Present: supple, normal ROM - Respiratory Respiratory effort: normal Respiratory: bilateral: CTA - Cardiovascular Heart rate: 81 Heart Sounds: Present: S1 & S2. Absent: rub, click - Extremities Extremities: pulses symmetrical, No edema Peripheral Pulses: within normal limits - Abdominal General gastrointestinal: Present: soft, non-tender, non-distended, normal bowel sounds Female genitourinary: Present: normal - Integumentary Integumentary: Present: clear, warm, dry - Musculoskeletal Musculoskeletal: right sided weakness - Psychiatric Psychiatric: other (confused) - Neurologic Neurologic: CNII-XII intact, moves all extremities - Allied Health Allied health notes reviewed: nursing, PT, ST HEART Score - HEART Score Troponin: Troponin T < 0.010 ng/mL (0.00-0.029) 02/07/20 04:08 Results - Labs CBC & Chem 7: 02/07/20 02:03 02/07/20 02:03 Labs: Abnormal lab results 02/07/20 02/07/20 Range/Units 02:03 04:08 RBC 5.16 H (3.65-5.03) M/mm3 MCV 73 L (79-97) fl MCH 24 L (28-32) pg RDW 15.7 H (13.2-15.2) % Lymphocytes % (Manual) 40.0 H (13.4-35.0) % Monocytes % (Manual) 9.0 H (0.0-7.3) % Total Creatine Kinase 247 H (30-135) units/L Assessment and Plan - Patient Problems (1) Encephalopathy acute Current Visit: Yes Status: Acute Plan to address problem: ? cause-infection/CVA/seizure/TIA-improved Monitor mental status Neurologist consult-Stroke Protocol IV hydration with normal salin Blood culture and urinalysis Neuro Checks Speech consult-Bedside Swallow Eval PT/OT consult -f/u with recommendation (2) Altered mental state Current Visit: Yes Status: Acute Qualifiers: Altered mental status type: unspecified Qualified Code(s): R41.82 - Altered mental status, unspecified Plan to address problem: orient patient -resolving Safety and fall precaution at all times (3) Confusion Current Visit: Yes Status: Acute Plan to address problem: on admission-? cause seizure/TIA Am lab cbc and BMP Tele neurologist consult (4) Essential (primary) hypertension Current Visit: Yes Status: Acute Plan to address problem: history of high blood pressure Per Ed record-pt has elevated CL-icogglnjrulnu-oucu selp bp med-dropped Blood pressure Blood normal-hold BP medication for now Will resume home bp med-will resume if neede (5) DVT prophylaxis Current Visit: Yes Status: Acute Plan to address problem: Lovenox (6) Advance care planning Current Visit: Yes Status: Acute Plan to address problem: Will discussed -with patient -pt is full code
[2020-02-07] MEDS ORDERED: ONDANSETRON 4 MG/2 ML INJ IV PRN (05:13)
[2020-02-07] MEDS ORDERED: traMADol 50 MG TAB PO ONE (05:13)
[2020-02-07] MEDS ORDERED: ASPIRIN EC 81 MG TAB PO ONE (05:13)
[2020-02-07] MEDS ORDERED: ALUM-MAG HYDROXIDE-SIMETHICONE 200-200-20MG/5ML ORAL LIQD 30 ML PO PRN (05:13)
[2020-02-07] MEDS ORDERED: traMADol 50 MG TAB PO PRN (05:13)
[2020-02-07] MEDS: SODIUM CHLORIDE 0.9% 1000 ML 1,000 ML IV SCH ×2 (05:50→14:05)
--- NOTE | 2020-02-07 11:05 | Progress Note ---
Assessment and Plan Assessment and plan: --Acute encephalopathy Current Visit: Yes Status: Acute Plan to address problem: ? cause-infection/CVA/seizure/TIA-improved Not a candidate for TPA Neurologist consult-Stroke Protocol IV hydration with normal salin Blood culture and urinalysis Neuro Checks, MRI carotid Doppler echocardiogram Speech consult-Bedside Swallow Eval PT/OT consult -f/u with recommendation --Metabolic encephalopathy ; Current Visit: Yes Status: Acute Plan to address problem: Present on admission Today patient's mental status is Back to baseline Follow neuro work-up, possible TIA --Essential (primary) hypertension Current Visit: Yes Status: Acute Plan to address problem: history of high blood pressure Blood pressures in the lower range Closely monitor --DVT prophylaxis Current Visit: Yes Status: Acute Plan to address problem: Lovenox --Advance care planning Current Visit: Yes Status: Acute Plan to address problem: Will discussed -with patient -pt is full code PT OT speech therapy and rehabilitation Follow neurology evaluation and recommendations Follow neuro work-up Advance care 35 minutes History Interval history: I have seen and examined the patient at the bedside this morning Patient's chart and medications reviewed Admitted with neuro symptoms Neuro work-up is in progress Hospitalist Physical - Constitutional Vitals: Temp Pulse Resp BP Pulse Ox 99.6 F 71 20 134/74 98 02/07/20 10:43 02/07/20 10:43 02/07/20 10:43 02/07/20 10:43 02/07/20 10:43 General appearance: Present: mild distress, obese - EENT Eyes: Present: PERRL, EOM intact - Neck Neck: Present: supple, normal ROM - Respiratory Respiratory effort: normal Respiratory: bilateral: diminished, negative: rales, rhonchi, wheezing - Cardiovascular Rhythm: regular Heart Sounds: Present: S1 & S2 - Extremities Extremities: no ischemia, No edema - Abdominal General gastrointestinal: soft, non-tender, non-distended, normal bowel sounds - Integumentary Integumentary: Present: clear, warm - Psychiatric Psychiatric: appropriate mood/affect, cooperative - Neurologic Neurologic: moves all extremities (Motor power right side 4-5/5 left side 5/5, sensory grossly intact) HEART Score - HEART Score Troponin: Troponin T < 0.010 ng/mL (0.00-0.029) 02/07/20 04:08 Results - Labs CBC & Chem 7: 02/07/20 02:03 02/07/20 02:03 Labs: Laboratory Last Values WBC 7.6 K/mm3 (4.5-11.0) 02/07/20 02:03 RBC 5.16 M/mm3 (3.65-5.03) H 02/07/20 02:03 Hgb 12.2 gm/dl (10.1-14.3) 02/07/20 02:03 Hct 37.8 % (30.3-42.9) 02/07/20 02:03 MCV 73 fl (79-97) L 02/07/20 02:03 MCH 24 pg (28-32) L 02/07/20 02:03 MCHC 32 % (30-34) 02/07/20 02:03 RDW 15.7 % (13.2-15.2) H 02/07/20 02:03 Plt Count 311 K/mm3 (140-440) 02/07/20 02:03 Baso % (Auto) New Car Driver 02/07/20 02:03 Add Manual Diff Complete 02/07/20 02:03 Total Counted 100 02/07/20 02:03 Seg Neuts % (Manual) 47.0 % (40.0-70.0) 02/07/20 02:03 Band Neutrophils % 0 % 02/07/20 02:03 Lymphocytes % (Manual) 40.0 % (13.4-35.0) H 02/07/20 02:03 Reactive Lymphs % (Man) 0 % 02/07/20 02:03 Monocytes % (Manual) 9.0 % (0.0-7.3) H 02/07/20 02:03 Eosinophils % (Manual) 4.0 % (0.0-4.3) 02/07/20 02:03 Basophils % (Manual) 0 % (0.0-1.8) 02/07/20 02:03 Metamyelocytes % 0 % 02/07/20 02:03 Myelocytes % 0 % 02/07/20 02:03 Promyelocytes % 0 % 02/07/20 02:03 Blast Cells % 0 % 02/07/20 02:03 Nucleated RBC % Not Reportable 02/07/20 02:03 Seg Neutrophils # Man 3.6 K/mm3 (1.8-7.7) 02/07/20 02:03 Band Neutrophils # 0.0 K/mm3 02/07/20 02:03 Lymphocytes # (Manual) 3.0 K/mm3 (1.2-5.4) 02/07/20 02:03 Abs React Lymphs (Man) 0.0 K/mm3 02/07/20 02:03 Monocytes # (Manual) 0.7 K/mm3 (0.0-0.8) 02/07/20 02:03 Eosinophils # (Manual) 0.3 K/mm3 (0.0-0.4) 02/07/20 02:03 Basophils # (Manual) 0.0 K/mm3 (0.0-0.1) 02/07/20 02:03 Metamyelocytes # 0.0 K/mm3 02/07/20 02:03 Myelocytes # 0.0 K/mm3 02/07/20 02:03 Promyelocytes # 0.0 K/mm3 02/07/20 02:03 Blast Cells # 0.0 K/mm3 02/07/20 02:03 WBC Morphology Not Reportable 02/07/20 02:03 Hypersegmented Neuts Not Reportable 02/07/20 02:03 Hyposegmented Neuts Not Reportable 02/07/20 02:03 Hypogranular Neuts Not Reportable 02/07/20 02:03 Smudge Cells Not Reportable 02/07/20 02:03 Toxic Granulation Not Reportable 02/07/20 02:03 Toxic Vacuolation Not Reportable 02/07/20 02:03 Dohle Bodies Not Reportable 02/07/20 02:03 Pelger-Huet Anomaly Not Reportable 02/07/20 02:03 Loy Rods Not Reportable 02/07/20 02:03 Platelet Estimate Consistent w auto 02/07/20 02:03 Clumped Platelets Not Reportable 02/07/20 02:03 Plt Clumps, EDTA Not Reportable 02/07/20 02:03 Large Platelets Not Reportable 02/07/20 02:03 Giant Platelets Not Reportable 02/07/20 02:03 Platelet Satelliting Not Reportable 02/07/20 02:03 Plt Morphology Comment Not Reportable 02/07/20 02:03 RBC Morphology Not Reportable 02/07/20 02:03 Dimorphic RBCs Not Reportable 02/07/20 02:03 Polychromasia Not Reportable 02/07/20 02:03 Hypochromasia 1+ 02/07/20 02:03 Poikilocytosis Not Reportable 02/07/20 02:03 Anisocytosis Not Reportable 02/07/20 02:03 Microcytosis Not Reportable 02/07/20 02:03 Macrocytosis Not Reportable 02/07/20 02:03 Spherocytes Not Reportable 02/07/20 02:03 Pappenheimer Bodies Not Reportable 02/07/20 02:03 Sickle Cells Not Reportable 02/07/20 02:03 Target Cells Not Reportable 02/07/20 02:03 Tear Drop Cells Rare 02/07/20 02:03 Ovalocytes Rare 02/07/20 02:03 Helmet Cells Not Reportable 02/07/20 02:03 [place] Common Bodies Not Reportable 02/07/20 02:03 [place] Rings Not Reportable 02/07/20 02:03 Kim Cells Not Reportable 02/07/20 02:03 Bite Cells Not Reportable 02/07/20 02:03 Crenated Cell Not Reportable 02/07/20 02:03 Elliptocytes Not Reportable 02/07/20 02:03 Acanthocytes (Spur) Rare 02/07/20 02:03 Rouleaux Not Reportable 02/07/20 02:03 Hemoglobin C Crystals Not Reportable 02/07/20 02:03 Schistocytes Not Reportable 02/07/20 02:03 Malaria parasites Not Reportable 02/07/20 02:03 Cristino Bodies Not Reportable 02/07/20 02:03 Hem Pathologist Commnt No 02/07/20 02:03 PT 13.4 Sec. (12.2-14.9) 02/07/20 04:08 INR 1.00 (0.87-1.13) 02/07/20 04:08 APTT 29.5 Sec. (24.2-36.6) 02/07/20 04:08 Thrombin Time 15.8 Sec. (15.1-19.6) 02/07/20 04:08 Sodium 138 mmol/L (137-145) 02/07/20 02:03 Potassium 3.6 mmol/L (3.6-5.0) 02/07/20 02:03 Chloride 102.4 mmol/L (98-107) 02/07/20 02:03 Carbon Dioxide 24 mmol/L (22-30) 02/07/20 02:03 Anion Gap 15 mmol/L 02/07/20 02:03 BUN 15 mg/dL (7-17) 02/07/20 02:03 Creatinine 0.9 mg/dL (0.6-1.2) 02/07/20 02:03 Estimated GFR > 60 ml/min 02/07/20 02:03 BUN/Creatinine Ratio 17 % 02/07/20 02:03 Glucose 96 mg/dL (65-100) 02/07/20 02:03 POC Glucose 83 mg/dL (70-105) 02/07/20 09:00 Calcium 9.4 mg/dL (8.4-10.2) 02/07/20 02:03 Total Bilirubin < 0.20 mg/dL (0.1-1.2) 02/07/20 02:03 AST 16 units/L (5-40) 02/07/20 02:03 ALT 13 units/L (7-56) 02/07/20 02:03 Alkaline Phosphatase 41 units/L (35-129) 02/07/20 02:03 Total Creatine Kinase 247 units/L (30-135) H 02/07/20 04:08 CK-MB (CK-2) 1.9 ng/mL (0.0-4.0) 02/07/20 04:08 CK-MB (CK-2) Rel Index 0.7 (0-4) 02/07/20 04:08 Troponin T < 0.010 ng/mL (0.00-0.029) 02/07/20 04:08 Total Protein 7.7 g/dL (6.3-8.2) 02/07/20 02:03 Albumin 4.3 g/dL (3.9-5) 02/07/20 02:03 Albumin/Globulin Ratio 1.3 % 02/07/20 02:03 Urine Color Yellow (Yellow) 02/07/20 03:11 Urine Turbidity Clear (Clear) 02/07/20 03:11 Urine pH 5.0 (5.0-7.0) 02/07/20 03:11 Ur Specific [place] 1.021 (1.003-1.030) 02/07/20 03:11 Urine Protein <15 mg/dl mg/dL (Negative) 02/07/20 03:11 Urine Glucose (UA) Neg mg/dL (Negative) 02/07/20 03:11 Urine Ketones Neg mg/dL (Negative) 02/07/20 03:11 Urine Blood Sm (Negative) 02/07/20 03:11 Urine Nitrite Neg (Negative) 02/07/20 03:11 Urine Bilirubin Neg (Negative) 02/07/20 03:11 Urine Urobilinogen < 2.0 mg/dL (<2.0) 02/07/20 03:11 Ur Leukocyte Esterase Neg (Negative) 02/07/20 03:11 Urine WBC (Auto) 2.0 /HPF (0.0-6.0) 02/07/20 03:11 Urine RBC (Auto) 2.0 /HPF (0.0-6.0) 02/07/20 03:11 U Epithel Cells (Auto) 6.0 /HPF (0-13.0) 02/07/20 03:11 Urine Mucus 1+ /HPF 02/07/20 03:11 Urine HCG, Qual Negative (Negative) 02/07/20 03:11 Plasma/Serum Alcohol < 0.01 % (0-0.07) 02/07/20 04:08 Microbiology: Microbiology 02/07/20 06:00 Peripheral/Venous Blood Culture - Preliminary Culture in Progress 02/07/20 05:46 Peripheral/Venous Blood Culture - Preliminary Culture in Progress [place]/IV: IV Catheter Type [Right INT / Saline Lock Antecubital] Active Medications - Current Medications Current Medications: Generic Name Dose Route Start Last Admin Trade Name Freq PRN Reason Stop Dose Admin Al Hydrox/Mg Hydrox/Simethicone 15 ml 02/07/20 05:13 Alum-Mag Hydrox-Simeth 224-574-90dp/5ml PO Q4H PRN Indigestion Aspirin 81 mg 02/07/20 10:00 Halfprin Ec PO QDAY DEMAR Atorvastatin Calcium 40 mg 02/07/20 22:00 Lipitor PO QHS DEMAR Sodium Chloride 1,000 mls @ 100 mls/hr 02/07/20 05:15 02/07/20 05:50 Nacl 0.9% 1000 Ml IV 100 mls/hr DIRECT DEMAR Administration Tramadol HCl 50 mg 02/07/20 05:13 Ultram PO Q4H PRN Pain, Moderate (4-6) Trazodone HCl 50 mg 02/07/20 22:00 Desyrel PO QHS DEMAR
[2020-02-07] MEDS: ASPIRIN EC 81 MG TAB PO SCH (14:04)
--- NOTE | 2020-02-07 17:23 | Consultation ---
History of Present Illness Consult date: 02/07/20 Reason for Consult: passing out symptoms, headache, confusion, right-sided weakness History of present illness: This is a comprehensive neurological evaluation on Ms. Marianna Rocha who is a very pleasant 34 years old woman admitted with the symptoms of passing out symptoms in shower. She also reported headache, confusion when she woke up aft er passing out symptoms. Her blood pressure was 229/110 mmHg checked by EMS. She reported that she did not take her blood pressure medicine right away and she probably missed the dose. Presently she has trouble bringing out the words, mild headache, right eye blurry vision, right leg and arm tingling but denied any weakness. She was evaluated by telemetry stroke as stroke alert but she was not a candidate for intravenous TPA as per the note. Her CT scan of the brain was unremarkable. Past History Past Medical History: hypertension, other (obesity) Past Surgical History: No surgical history Social history: no significant social history Family history: no significant family history Medications and Allergies Allergies Allergy/AdvReac Type Severity Reaction Status Date / Time ondansetron HCl AdvReac Intermediate Itching Verified 11/04/16 15:07 [From Zofran (as hydrochloride)] Home Medications Medication Instructions Recorded Confirmed Last Taken Type Diclofenac Dr [Jacqueline Mistry] 75 mg PO Q12H #30 tablet 04/24/14 Unknown Rx HYDROcodone/ACETAMINOPHEN [[place] 1 each PO Q6H #16 tablet 04/24/14 Unknown Rx 7.5-325 mg TAB] Amoxicillin/K Clav Tab [Augmentin 1 tab PO BID #20 tab 11/26/15 Unknown Rx 875 mg] Ibuprofen [Motrin 800 MG tab] 800 mg PO Q8HR PRN #20 tablet 11/26/15 Unknown Rx Albuterol Sulfate [Proair 90 mcg IH Q4HR PRN #2 aer.pow.ba 06/09/16 Unknown Rx Respiclick] Benzonatate [Tessalon Perles] 100 mg PO Q8HR PRN #30 capsule 06/09/16 Unknown Rx Metoclopramide [Reglan] 10 mg PO QID PRN #30 tablet 06/09/16 Unknown Rx Ibuprofen [Motrin 600 MG tab] 600 mg PO Q8H PRN #30 tablet 11/05/16 Unknown Rx predniSONE [Deltasone] 40 mg PO DAILY #10 tab 11/05/16 Unknown Rx Active Meds: Active Medications Al Hydrox/Mg Hydrox/Simethicone (Alum-Mag Hydrox-Simeth 465-584-20it/5ml) 15 ml PO Q4H PRN PRN Reason: Indigestion Aspirin (Halfprin Ec) 81 mg PO QDAY [facility] Last Admin: 02/07/20 14:04 Dose: 81 mg Documented by: Atorvastatin Calcium (Lipitor) 40 mg PO QHS DEMAR Sodium Chloride (Nacl 0.9% 1000 Ml) 1,000 mls @ 100 mls/hr IV DIRECT DEMAR Last Admin: 02/07/20 14:05 Dose: 100 mls/hr Documented by: Tramadol HCl (Ultram) 50 mg PO Q4H PRN PRN Reason: Pain, Moderate (4-6) Trazodone HCl (Desyrel) 50 mg PO QHS DEMAR Review of Systems All systems: negative (as per HPI, headache, confusion, right arm and leg tingling and numbness and right eye blurred vision.) Eyes: right: blurred vision Physical Examination - Vital Signs Vital Signs: Vital Signs Resp 18 02/07/20 03:08 - Physical Exam Narrative exam: Comprehensive Neurological Examinations: Mental status: alert. Fund of knowledge-normal. Affect-appropriate. Recent memory-normal. Remote memory-normal. Attention span-normal. Cognitive functio n-normal. Thought content/perception-normal Speech-normal Cranial nerves: II Optic: Visual jyaows-xktylctwn-ltqzdd. Visual field-normal. III Oculomotor: Bilateral-normal IV Trochlear: Bilateral-normal V Trigeminal: Bilateral-normal. Abducens: Bilateral-normal VII Facial: Bilateral-normal VIII Acoustic: oipgzkhrk-vqblgcg-lsygec( tested by finger rub) IX Glossopharyngeal/ X Jqoda-aobvd-ekhhpc XI Accessory-normal shoulder shrug XII Mhenlfzpueb-cebgkdwix-quvuft Eye movements: Kikj-wprvxuoad-xnjojg Nystagmus: Bilateral-none Motor: Bulk and contour: Normal Tone: Normal Strength: Head and neck-normal Upper extremities: Right-5/5 Left-5/5 Lower extremities: Right-mild drift, Left-5/5 DTRs: Deferred Sensory: Light touch/pinprick-feels tingling on the right side - Constitutional General appearance: comfortable - EENT EENT: Present: ATNC, PERRL, hearing intact, vision intact - Respiratory Respiratory: Present: chest non-tender - Cardiovascular Cardiovascular: Present: regular rate - Gastrointestinal Gastrointestinal: Present: soft, non-tender - Integumentary Integumentary: Present: normal - Level of Consciousness 1a. Level of Consciousness: alert/keenly responsive - LOC Questions 1b. LOC Questions: answers both correctly - LOC Command 1c. LOC Commands: performs tasks correctly - Best Gaze 2. Best Gaze: normal - Visual 3. Visual: no visual loss - Facial Palsy 4. Facial Palsy: normal symmetrical movement - Motor Arm 5a. Motor Arm Left: no drift 5b. Motor Arm Right: no drift - Motor Leg 6a. Motor Leg Left: no drift 6b. Motor Leg Right: drift - Limb Ataxia 7. Limb Ataxia: absent - Sensory 8. Sensory: normal - Best Language 9. Best Language: no aphasia - Dysarthria 10. Dysarthria: normal - Extinction and Inattention 11. Extinction/Inattention: no abnormality - Scoring Total Score: 1 Stroke Severity: Minor Stroke Results - Laboratory Findings CBC and BMP: 02/07/20 02:03 02/07/20 02:03 Abnormal Lab Findings: Abnormal Labs 02/07/20 02/07/20 02:03 04:08 RBC 5.16 H MCV 73 L MCH 24 L RDW 15.7 H Lymphocytes % (Manual) 40.0 H Monocytes % (Manual) 9.0 H Total Creatine Kinase 247 H - Diagnostic Findings Additional findings: CT scan of the brain is unremarkable. Assessment and Plan - Patient Problems (1) Stroke Current Visit: Yes Status: Acute Qualifiers: Precerebral and cerebral artery: middle cerebral artery Laterality of affected vessel: left Plan to address problem: Plan: 1) Patient needs MRI of brain with and without GRADY if no contraindication for GRADY 2) Please give her a baby aspirin 81 mg now and daily if not given before 3) Patient needs statin as core measure for acute stroke treatment 4) Education for smoking cessation 5) PT/OT/speech therapy 6) DVT prophylaxis 7) Keep blood pressure <185/90 millimeters of mercury for 3 days, then lower it to 414545/80 mmHg with the help of antihypertensive medicine. 8) Education for weight control and secondary stroke prevention. (2) Encephalopathy acute Current Visit: Yes Status: Acute Plan to address problem: Plan: 1) Possible hypertensive encephalopathy 2) Better blood pressure control as described above (3) Syncope Current Visit: Yes Status: Acute Qualifiers: Syncope type: unspecified Qualified Code(s): R55 - Syncope and collapse Plan to address problem: Plan: 1) Please order an EEG 2) Seizure precaution I discussed at length with the patient regarding her condition and possible treatment options. I have answered multiple questions posed by the patient to her best satisfactions. Patient agreed with the plan. Thank you very much for allowing us in the care of your patient. Please call us if you have any questions. Deysi Sandra MD Tele-neurologist [phone]
[2020-02-07] MEDS ORDERED: NICOTINE 14 MG/24 HR PATCH TD ONE (18:24)
[2020-02-07] MEDS ORDERED: traZODone 50 MG TAB PO SCH (22:00)
[2020-02-08 05:42] LABS: Chol/HDL Ratio 4.3 %
[2020-02-08] MEDS: ASPIRIN EC 81 MG TAB PO SCH (10:31)
--- NOTE | 2020-02-08 13:47 | Vascular Lab Report ---
VL carotid duplex BILAT INDICATION / CLINICAL INFORMATION: Acute CVA. COMPARISON: None available. FINDINGS: No significant plaque formation is demonstrated at the bifurcations. Velocity measurements and wavefo rm analysis indicate less than 50% stenosis of each internal carotid artery, according to Nascet crit eria. Normal antegrade flow is demonstrated in both vertebral arteries. IMPRESSION: 1. No hemodynamically significant stenosis. Signer Name: Mack Fam MD Signed: 02/08/2020 1:43 PM Workstation Name: [id number])MERGED [id number]
--- NOTE | 2020-02-08 14:25 | Magnetic Resonance Report ---
NONENHANCED and contrast-enhanced MR SCAN OF THE BRAIN: INDICATION / CLINICAL INFORMATION: Stroke. TECHNIQUE: Multiplanar, multisequence MR images of the brain obtained. COMPARISON: CT scan of the head from 02/07/2020 FINDINGS: BRAIN / INTRACRANIAL CONTENTS: No acute ischemia, acute hemorrhage, mass effect, midline shift, or hy drocephalus. No chronic infarct or atrophy. No significant white matter abnormality. No enhancing pa renchymal or meningeal lesions CRANIOCERVICAL JUNCTION: No significant abnormality. VASCULAR FLOW-VOIDS: No significant abnormality. ORBITS: No significant abnormality of visualized orbits. SINUSES / MASTOIDS: No significant abnormality of visualized sinuses and mastoid air cells. ADDITIONAL FINDINGS: Empty sella IMPRESSION: 1. No acute focal parenchymal lesion in the brain Signer Name: Helene Monsivais MD Signed: 02/08/2020 2:20 PM Workstation Name: [id number]
--- NOTE | 2020-02-08 15:55 | Discharge Summary ---
Providers - Providers Date of Admission: 02/07/20 04:47 Date of discharge: 02/08/20 Attending physician: SHAYLA CELAYA 02/07/20 05:19 Occupational Therapy Evaluate and Treat [CONS] Stat Comment: Reason For Exam: r/o cva Physical Therapy Evaluation and Treat [CONS] Stat Comment: Reason For Exam: r/o cva Speech Therapy Evaluation and Treat [CONS] Stat Reason For Exam: r/o dysphagia 02/07/20 11:07 Consult to Physician [CONS] Routine Comment: Consulting Provider: IRENE GREENE Physician Instructions: Reason For Exam: Possible CVA Primary care physician: MIXED CROP FARMER Hospitalization Reason for admission: Syncopal episode/altered level of consciousness/neuro symptoms Condition: Stable Pertinent studies: Echo; EF 55 to 60%, positive PFO Cardiology advised outpatient YURY CT head; no acute abnormality MRI brain; no acute abnormality Carotid Doppler; no hemodynamically significant stenosis Hospital course: 34-year-old morbidly obese female patient with significant past medical history of hypertension noncompliant with medications was admitted through emergency ro om with history of syncopal episode , headache and altered level of consciousness . Ported that patient's blood pressure was 229/110. In the emergency room patient was evaluated by telemetry neurologist, patient is not a candidate for TPA, however advised neuro work-up Patient was started on aspirin and statin, underwent CT head without contrast negative for acute abnormality, carotid Doppler no hemodynamically significant stenosis, MRI brain no acute abnormality, however echocardiogram show positive PFO. Cardiology recommended outpatient YURY. Patient was evaluated by PT and OT, both of them recommended outpatient PT OT upon discharge Today patient is comfortable no new complaints vital signs stable, Complains of mild generalized weakness, alert awake oriented x3 Neuro exam very minimal right-sided weakness per the patient, Patient is hemodynamically and clinically stable for discharge Follow-up with private neurologist, PMD and cell stripper at which time patient would undergo YURY Patient is hemodynamically and clinically stable at discharge Discharge diagnosis; --Syncope, work-up negative --PFO , on echocardiogram; outpatient YURY per cardiology --Metabolic encephalopathy/altered level of consciousness; multifactorial --Dyslipidemia; statin --Possible TIA; aspirin and statin --Possible CVA; neuro work-up negative, acute CVA ruled out --Hypertension; stable --Ongoing tobacco use; smoking cessation counseled nicotine patch as needed --Morbid obesity; BMI 42.2, advise exercise as tolerated and weight reduction when medically stable, Disposition: DC-01 TO HOME OR SELFCARE Time spent for discharge: 32 min Core Measure Documentation - Palliative Care Palliative Care/ Comfort Measures: Not Applicable - Core Measures Any of the following diagnoses?: none Exam - Constitutional Vitals: Temp Pulse Resp BP Pulse Ox 98.0 F 73 18 94/56 99 02/08/20 03:54 02/08/20 13:00 02/08/20 03:54 02/08/20 03:54 02/08/20 14:50 General appearance: Present: no acute distress, well-nourished - EENT Eyes: Present: PERRL, EOM intact - Neck Neck: Present: supple, normal ROM - Respiratory Respiratory effort: normal Respiratory: bilateral: diminished, negative: rales, rhonchi, wheezing - Cardiovascular Rhythm: regular Heart Sounds: Present: S1 & S2 - Extremities Extremities: no ischemia, No edema - Abdominal General gastrointestinal: Present: soft, non-tender, non-distended, normal bowel sounds - Integumentary Integumentary: Present: clear, warm - Musculoskeletal Musculoskeletal: strength equal bilaterally - Psychiatric Psychiatric: appropriate mood/affect, cooperative - Neurologic Neurologic: CNII-XII intact, moves all extremities Plan Activity: advance as tolerated, fall precautions Diet: other (cardiac diet) Special Instructions: smoking cessation Additional Instructions: Advised smoking cessation. Advised to follow cardiology in 1 week for YURY. Advised dietary modification, lifestyle changes, exercise as tolerated, and weight reduction when medically stable Follow up with: PRIMARY CARE, [Primary Care Provider] - 7 Days JESSIE BARRAGAN MD [Staff Physician] - 7 Days SACHIN KENNY MD [Staff Physician] - 7 Days Prescriptions: Aspirin EC [Halfprin EC] 81 mg PO QDAY #30 tablet AtorvaSTATin [Lipitor] 40 mg PO QHS #30 tablet Other Discharge Orders: Occupational Therapy (Amb) Location: None Selected Physicial Therapy (Amb) Location: None Selected Shower Chair (Amb) Location: None Selected Walker-Rolling (Amb) Location: None Selected
[2020-02-08 17:48] VITALS: BP 98/50
== END 2020-02-08 18:36 | disposition home or self-care (01) ==
LOC: ED 22:40 → 4A 02-07 04:47
PROVIDERS: ADMIT Internal Medicine Geriatric Medicine; ATTEND Internal Medicine
DX: I63.9 Cerebral infarction, unspecified (principal); G93.40 Encephalopathy, unspecified; I10 Essential (primary) hypertension; R41.0 Disorientation, unspecified; R55 Syncope and collapse; R53.1 Weakness; R20.0 Anesthesia of skin; G43.909 Migraine, unspecified, not intractable, without status migrainosus; E66.9 Obesity, unspecified; E78.00 Pure hypercholesterolemia, unspecified; E78.5 Hyperlipidemia, unspecified; F17.210 Nicotine dependence, cigarettes, uncomplicated; R29.707 NIHSS score 7; Z68.41 Body mass index [BMI] 40.0-44.9, adult; Z91.14 Patient's other noncompliance with medication regimen; Z79.82 Long term (current) use of aspirin
CPT/HCPCS: 36415; 70450; 70553; 80053; 80061; 81001; 81025; 82550; 82553; 82962; 84484; 85025; 85610; 85670; 85730; 87040; 87116; 92610; 93005; 93306; 93880; 96360; 96361; 97110; 97112; 97162; 97165; 97530; 97535; 99291; 99406; A9270; A9577; G0378; J7030; 80320; 85007; G0480

== ENCOUNTER 2020-03-17 07:53 | Outpatient (CLI) | payer OTHER ==
[2020-03-17] MEDS ORDERED: SODIUM CHLORIDE 0.9% 500 ML 500 ML IV SCH (09:00)
[2020-03-17] MEDS ORDERED: BENZOCAINE 20% TOP SPRAY 0.5 ML UNIT DOSE MM NR (09:00)
--- NOTE | 2020-03-17 10:06 | Anesthesia Consultation ---
Anesthesia Consult and Med Hx Date of service: 03/17/20 - Airway Anesthetic Teeth Evaluation: Good ROM Head & Neck: Adequate Mental/Hyoid Distance: Adequate Mallampati Class: Class III Intubation Access Assessment: Possibly Difficult - Pulmonary Exam CTA: Yes - Cardiac Exam Cardiac Exam: RRR - Pre-Operative Health Status ASA Pre-Surgery Classification: ASA3 Proposed Anesthetic Plan: MAC - Pulmonary Hx Smoking: Yes (03/31 PPD) Hx Respiratory Symptoms: No (seasonal bronchitis; no recent symptoms) - Cardiovascular System Hx Hypertension: Yes Hx Heart Attack/AMI: No Hx Percutaneous Transluminal Coronary Angioplasty (PTCA): No Hx Cardia Arrhythmia: No Hx Valvular Heart Disease: No (PFO on TTE) - Central Nervous System CVA: Yes (TIA 01/2020) - Endocrine Hx Renal Disease: No Hx Liver Disease: No Hx Insulin Dependent Diabetes: No Hx Non-Insulin Dependent Diabetes: No Hx Thyroid Disease: No - Other Systems Hx Obesity: Yes (BMI 44) - Additional Comments Anesthesia Medical History Comments: No hx anesthetic complications.
--- NOTE | 2020-03-17 10:06 | Anesthesia Day of Surgery ---
Anesthesia Day of Surgery - Day of Surgery Patient Examined: Yes Patient H&P Reviewed: Yes Patient is NPO: Yes
[2020-03-17 10:22] LABS: Basophils % (Auto) 0.6 % (0.0-1.8); Eosinophils # (Auto) 0.1 K/mm3 (0.0-0.4); Eosinophils % (Auto) 2.2 % (0.0-4.3); Hematocrit 35.5 % (30.3-42.9); Hemoglobin 11.7 gm/dl (10.1-14.3); Lymphocytes # (Auto) 2.3 K/mm3 (1.2-5.4); Mean Corpuscular HGB Conc 33 % (30-34); Mean Corpuscular Volume 72 fl (79-97); Monocytes # (Auto) 0.4 K/mm3 (0.0-0.8); Monocytes % (Auto) 7.1 % (0.0-7.3); Platelet Count 296 K/mm3 (140-440); Red Blood Count 4.93 M/mm3 (3.65-5.03); Red Cell Distribution Width 15.3 % (13.2-15.2)
[2020-03-17 10:34] LABS: BUN/Creatinine Ratio 20; Blood Urea Nitrogen 16 mg/dL (7-17); Calcium 9.2 mg/dL (8.4-10.2); Hemolysis Index 58
[2020-03-17 10:49] LABS: INR 1.01 (0.87-1.13); Partial Thromboplastin Time 30.3 Sec. (24.2-36.6)
[2020-03-17] MEDS ORDERED: propofoL 200 MG/20 ML VIAL IV ONE ×2 (10:57)
--- NOTE | 2020-03-17 11:53 | Short Stay Summary ---
Short Stay Documentation Date of service: 03/17/20 - History H&P: obtained from office - Allergies and Medications Current Medications: Allergies ondansetron HCl [From Zofran (as hydrochloride)] Adverse Reaction (Intermediate, Verified 11/04/16 15:07) Itching mushrooms Adverse Reaction (Uncoded 03/17/20 08:44) Anaphylaxis Home Medications Medication Instructions Recorded Confirmed Last Taken Type Albuterol Sulfate [Proair 90 mcg IH Q4HR PRN #2 aer.pow.ba 06/09/16 03/17/20 Unknown Rx Respiclick] Aspirin EC [Halfprin EC] 81 mg PO QDAY #30 tablet 02/08/20 03/17/20 03/16/20 Rx 81 mg AtorvaSTATin [Lipitor] 40 mg PO QHS 03/17/20 03/17/20 03/16/20 History 40 mg Butalb/Acetamin/Caff 50-325-40 1 tab PO DAILY PRN 03/17/20 03/17/20 03/16/20 History [Fioricet 50-325-40] 1 Ferrous Sulfate [Iron 325 MG] 325 mg PO DAILY 03/17/20 03/17/20 03/16/20 History 325 mg Pantoprazole [Protonix TAB] 40 mg PO DAILY 03/17/20 03/17/20 03/16/20 History 40 mg Vitamin D3 50,000UNIT CAP 1 cap PO 1XW 03/17/20 03/17/20 03/14/20 History 1 Active Medications Benzocaine (Benzocaine 20% Top Sigel 0.5 Ml Unit Dose) 3 spray MM PREOP NR Stop: 03/17/20 20:00 Last Admin: 03/17/20 11:25 Dose: 3 spray Documented by: Sodium Chloride (Nacl 0.9% 500 Ml) 500 mls @ 50 mls/hr IV DIRECT DEMAR - Brief post op/procedure progress note Date of procedure: 03/17/20 Pre-op diagnosis: tia Post-op diagnosis: same Procedure: see report Anesthesia: MAC Estimated blood loss: none Pathology: none - Disposition Condition at discharge: Good Disposition: DC-01 TO HOME OR SELFCARE - Discharge Diagnoses (1) Atrial septal aneurysm Status: Acute (2) Essential (primary) hypertension Status: Acute (3) Stroke Status: Chronic Qualifiers: CVA mechanism: unspecified Qualified Code(s): I63.9 - Cerebral infarction, unspecified Short Stay Discharge Plan Activity: advance as tolerated Diet: low fat, low cholesterol, low salt Follow up with: JACQUI BLAIR NP [Primary Care Provider] - 7 Days
[2020-03-17 13:15] VITALS: BP 103/62
--- NOTE | 2020-03-17 13:56 | Post Anesthesia Evaluation ---
- Post Anesthesia Evaluation Patient Participated: Yes Airway Patent: Yes Stable Respiratory Function: Yes Nausea/Vomiting: No Temp > 96.8F: Yes Pain Manageable: Yes Adequeate Hydration: Yes Anesthesia Complications: No
== END 2020-03-17 14:00 | disposition home or self-care (01) ==
LOC: CATHLABREC 07:53
PROVIDERS: ATTEND Internal Medicine
DX: Q21.1 Atrial septal defect (principal); Z20.828 Contact with and (suspected) exposure to other viral communicable diseases; E78.2 Mixed hyperlipidemia; E66.01 Morbid (severe) obesity due to excess calories; F17.210 Nicotine dependence, cigarettes, uncomplicated; G43.909 Migraine, unspecified, not intractable, without status migrainosus; G93.40 Encephalopathy, unspecified; I25.3 Aneurysm of heart; G47.30 Sleep apnea, unspecified; Z72.89 Other problems related to lifestyle; Z79.01 Long term (current) use of anticoagulants; Z91.81 History of falling; Z98.890 Other specified postprocedural states; Z68.41 Body mass index [BMI] 40.0-44.9, adult; Z79.82 Long term (current) use of aspirin; Z88.8 Allergy status to other drugs, medicaments and biological substances; Z79.899 Other long term (current) drug therapy; Z86.73 Personal history of transient ischemic attack (TIA), and cerebral infarction without residual deficits
CPT/HCPCS: 36415; 80048; 85025; 85610; 85730; 93312; 93320; 93325; J2704; J7040; U0003

== ENCOUNTER 2021-05-08 13:15 | Emergency (ER) | payer OTHER ==
[2021-05-08 13:27] VITALS: BP 119/82
--- NOTE | 2021-05-08 13:48 | Emergency Department Report ---
Minor Respiratory - HPI Chief Complaint: Upper Respiratory Infection Stated Complaint: RUNNING NOSE Minor Respiratory: Yes Rhinorrhea, No Sore Throat, No Able to Tolerate Fluids, No Ear Pain, No Cough, No Sick Contacts, No Hemoptysis, No Chest Pain, No Shortness of Breath, No Fever Other History: 35-year-old female presents to the ED complaining running x several months. Patient states that she has been seen by primary care doctor and treated for a URI and sinusitis. State current taking Benadryl, Claritin amoxicillin but continue to have rhinorrhea. She denies any headache nausea ,vomiting or diarrhea. Patient is alert and oriented x4. No acute distress noted .no ill appearance noted ED Review of Systems ROS: Stated complaint: RUNNING NOSE Other details as noted in HPI Constitutional: denies: chills, fever Eyes: denies: eye pain, eye discharge, vision change ENT: denies: ear pain, throat pain Respiratory: denies: cough, shortness of breath, wheezing Cardiovascular: denies: chest pain, palpitations Endocrine: no symptoms reported Gastrointestinal: denies: abdominal pain, nausea, diarrhea Genitourinary: denies: urgency, dysuria, discharge Musculoskeletal: denies: back pain, joint swelling, arthralgia Skin: denies: rash, lesions Neurological: denies: headache, weakness, paresthesias Psychiatric: denies: anxiety, depression Hematological/Lymphatic: denies: easy bleeding, easy bruising ED Past Medical Hx - Past Medical History Previous Medical History?: Yes Hx Hypertension: Yes Hx Heart Attack/AMI: No Hx Congestive Heart Failure: No Hx Diabetes: No Hx Liver Disease: No Hx Renal Disease: No Hx Headaches / Migraines: Yes (migranes) Hx Asthma: No Hx COPD: No Hx HIV: No Additional medical history: Bronchitis. OBESITY. high cholesterol. anemia - Surgical History Past Surgical History?: Yes Additional Surgical History: right wrist-CYST REMOVED. fibroid removal- 11/06/2019; Mervin Mcdonough-Dr Nuvia Marte - Social History Smoking Status: Current Every Day Smoker - Medications Home Medications: Home Medications Medication Instructions Recorded Confirmed Last Taken Type Albuterol Sulfate [Proair 90 mcg IH Q4HR PRN #2 aer.pow.ba 06/09/16 03/17/20 Unknown Rx Respiclick] Aspirin EC [Halfprin EC] 81 mg PO QDAY #30 tablet 02/08/20 03/17/20 03/16/20 Rx 81 mg AtorvaSTATin [Lipitor] 40 mg PO QHS 03/17/20 03/17/20 03/16/20 History 40 mg Butalb/Acetamin/Caff 50-325-40 1 tab PO DAILY PRN 03/17/20 03/17/20 03/16/20 History [Fioricet 50-325-40] 1 Ferrous Sulfate [Iron 325 MG] 325 mg PO DAILY 03/17/20 03/17/20 03/16/20 History 325 mg Pantoprazole [Protonix TAB] 40 mg PO DAILY 03/17/20 03/17/20 03/16/20 History 40 mg Vitamin D3 50,000UNIT CAP 1 cap PO 1XW 03/17/20 03/17/20 03/14/20 History 1 Minor Respiratory Exam - Exam General: Vital signs noted. No distress. Alert and acting appropriately. HEENT: Yes Moist Mucous Membranes, No Pharyngeal Erythema, No Pharyngeal Exudates, No Rhinorrhea, No Conjuctival Injection, No Frontal Tenderness, No Maxillary Tenderness Ear: Neither TM Bulge, Neither TM Erythema, Neither EAC Pain, Neither EAC Discharge Neck: Yes Supple, No Adenopathy Lungs: Yes Good Air Exchange, No Wheezes, No Ronchi, No Stridor, No Cough, No Labored Respirations, No Retractions, No Use of Accessory Muscles, No Other Abnormal Lung Sounds Heart: Yes Regular, No Murmur Abdomen: Yes Normal Bowel Sounds, No Tenderness, No Peritoneal Signs Skin: No Rash, No Edema Neurologic: Alert and oriented, no deficits. Musculoskeletal: Unremarkable. ED Course Vital Signs 05/08/21 13:25 Temperature 98.5 F Pulse Rate 84 Respiratory 16 Rate Blood Pressure 119/82 [Left] O2 Sat by Pulse 100 Oximetry ED Medical Decision Making - Medical Decision Making 35-year-old female presents to the ED complaining running x several months. Patient states that she has been seen by primary care doctor and treated for a URI and sinusitis. State current taking Benadryl, Claritin amoxicillin but continue to have rhinorrhea. She denies any headache nausea ,vomiting or diarrhea. Patient is alert and oriented x4. Physical examination unremarkable. Patient to follow-up with ENT Rechecked the patient is resting quietly quietly and comfortable and feeling better. I discussed the results of diagnostic study, my clinical impression and the plan for further treatment with the patient. Patient agrees with plan and discharge at this present time. All question addressed. I have given the patient instruction regarding a diagnosis ,expectation ,follow- up and return precaution. I explained to the patient that emergent condition may arise and to return to the ED for new worsen and any new persisting condition. I have explained the importance of following up with the primary care physician or referral physician listed below has instructed. The patient verbalized understanding of discharge instruction. Critical care attestation.: If time is entered above; I have spent that time in minutes in the direct care of this critically ill patient, excluding procedure time. ED Disposition Clinical Impression: URI (upper respiratory infection) Qualifiers: URI type: unspecified URI Qualified Code(s): J06.9 - Acute upper respiratory infection, unspecified Disposition: 01 HOME / SELF CARE / HOMELESS Is pt being admited?: No Does the pt Need Aspirin: No Condition: Stable Instructions: Upper Respiratory Infection, Adult, [id number] Additional Instructions: Use Mena boo to help with the running nose Follow-up with ENT of your choice Return to ED for any worsening symptom
== END 2021-05-08 14:10 | disposition home or self-care (01) ==
LOC: ED 13:15
DX: J06.9 Acute upper respiratory infection, unspecified (principal); I10 Essential (primary) hypertension; G43.909 Migraine, unspecified, not intractable, without status migrainosus; F17.200 Nicotine dependence, unspecified, uncomplicated; Z88.8 Allergy status to other drugs, medicaments and biological substances; Z91.018 Allergy to other foods; Z79.899 Other long term (current) drug therapy
CPT/HCPCS: 99282